=== PATIENT | female | born 1975 | race Caucasian/White ===

== ENCOUNTER 2019-07-20 19:06 | Inpatient (IN) | payer OTHER ==
[~2019-07-20] VITALS: Ht 149.9 cm; Wt 49.0 kg
[2019-07-20] MEDS ORDERED: GABA-531 PO (19:30)
[2019-07-20] MEDS ORDERED: RISP1 PO (19:30)
[2019-07-20] MEDS ORDERED: DOCU-275 PO (19:31)
[2019-07-20] MEDS ORDERED: BENZ1TAB10 PO (19:32)
[2019-07-20] MEDS ORDERED: ZOLPIDEM TARTRATE 10 MG TABLET PO PRN (19:45)
[2019-07-20] MEDS ORDERED: LORazepam 2 MG TABLET PO PRN (19:45)
[2019-07-20] MEDS ORDERED: NICOTINE POLACRILEX 2 MG LOZENGE PO PRN (20:45)
[2019-07-20] MEDS ORDERED: INFLUENZA VIRUS VACCINE QVS 2019-20 (3YR+)/PF 60 MCG/0.5 ML SYRINGE IM ONE (20:45)
[2019-07-20 21:06] VITALS: BP 105/67
[2019-07-21 07:13] VITALS: BP 104/65
[2019-07-21] MEDS: HALOPERIDOL 5 MG TABLET PO PRN (08:05)
[2019-07-21 08:09] LABS: HEMOGLOBIN A1C 5.4 % (4.5-6.2)
[2019-07-21 08:29] LABS: ALANINE AMINOTRANSFERASE 18 U/L (12-78); ALBUMIN 3.5 g/dL (3.4-5.0); ALKALINE PHOSPHATASE 33 U/L (46-116); ANION GAP 6 mmol/L (8-16); ASPARTATE AMINOTRANSFERASE 12 U/L (15-37); BILIRUBIN,TOTAL 0.2 mg/dL (0.1-1.0); CALCIUM, TOTAL 8.1 mg/dL (8.8-10.5); CARBON DIOXIDE 29 mmol/L (22-29); CHLORIDE 105 mmol/L (98-107); CHOLESTEROL 176 mg/dL (131-200); CREATININE 0.69 mg/dL (0.60-1.30); GLOMERULAR FILTR. RATE CALC > 60 mL/min (>60); GLUCOSE,RANDOM 88 mg/dL (70-110); HCG,QUANTITATIVE < 1 mIU/mL (0-6); HDL CHOLESTEROL 44 mg/dL (40-60); LDL CHOL (CALC.) 115 mg/dL (0-130); POTASSIUM 3.8 mmol/L (3.5-5.1); SODIUM SERUM 140 mmol/L (136-145); THYROID STIMULATING HORMONE 2.06 uIU/mL (0.36-3.74); TOTAL PROTEIN, SERUM 6.5 g/dL (6.4-8.2); TRIGLYCERIDES 83 mg/dL (15-150); UREA NITROGEN, BLOOD 9 mg/dL (7-18)
[2019-07-21 08:30] LABS: EOSINOPHILS % (AUTO) 5.2 % (1.0-6.0); HEMATOCRIT 31.6 % (36-46); HEMOGLOBIN 11.1 g/dL (12.0-16.0); LYMPHOCYTES # (AUTO) 1.2 K/uL (1.0-4.8); LYMPHOCYTES % (AUTO) 23.4 % (22.0-44.0); MEAN CORPUSCULAR HEMOGLOBIN 36.7 pg (26.0-34.0); MEAN CORPUSCULAR HGB CONC 35.1 G/dL (31.0-37.0); MEAN CORPUSCULAR VOLUME 105 fL (80-100); MONOCYTES # (AUTO) 0.4 K/uL (0.1-1.0); MONOCYTES % (AUTO) 8.2 % (2.0-9.0); NEUTROPHILS # (AUTO) 3.1 K/uL (1.8-7.7); NEUTROPHILS % (AUTO) 61.2 % (40.0-70.0); PLATELET COUNT (AUTO) 250 K/uL (150-450); RED BLOOD CELL COUNT(AUTO) 3.02 MIL/uL (4.00-5.20); RED CELL DISTRIBUTION WIDTH 12.8 % (11.5-14.5)
[2019-07-21 08:36] VITALS: BP 100/63
[2019-07-21] MEDS: NICOTINE 21 MG/24 HOUR PATCH TD SCH (09:29)
[2019-07-21] MEDS ORDERED: MAG HYDROX/AL HYDROX/SIMETH ES 30 ML SUSPENSION UDCUP PO PRN (09:30)
[2019-07-21] MEDS ORDERED: PETROLATUM,WHITE 28 GM JELLY TP PRN (09:30)
[2019-07-21] MEDS ORDERED: MAGNESIUM HYDROXIDE SUSPENSION 30 ML UDCUP PO PRN (09:30)
[2019-07-21] MEDS ORDERED: GuaiFENesin/D-METHORPHAN [SUGAR-FREE] 200-20MG/10 ML SYRUP UDCUP PO PRN (09:30)
[2019-07-21] MEDS ORDERED: NICOTINE 14 MG/24 HOUR PATCH TD PRN (09:30)
[2019-07-21] MEDS ORDERED: LOPERAMIDE HCL 2 MG CAPSULE PO PRN (09:30)
[2019-07-21] MEDS ORDERED: ONDANSETRON HCL 4 MG TABLET PO PRN (09:30)
[2019-07-21] MEDS ORDERED: CloNIDine HCL 0.1 MG TABLET PO PRN ×2 (09:30→15:30)
[2019-07-21] MEDS ORDERED: ALBUTEROL SULFATE HFA 90 MCG/PUFF 8 GM INHALER IH PRN (09:30)
[2019-07-21] MEDS ORDERED: DOCUSATE SODIUM 100 MG CAPSULE PO PRN (09:30)
[2019-07-21] MEDS ORDERED: IBUPROFEN 400 MG TABLET PO PRN (09:30)
[2019-07-21] MEDS ORDERED: ACETAMINOPHEN 325 MG TABLET PO PRN (09:30)
[2019-07-21 14:54] VITALS: BP 102/62
[2019-07-21] MEDS ORDERED: GABAPENTIN 300 MG CAPSULE PO PRN (15:30)
[2019-07-21] MEDS ORDERED: HydrOXYzine PAMOATE 25 MG CAPSULE PO PRN (15:30)
[2019-07-21] MEDS: BENZTROPINE MESYLATE 1 MG TABLET PO SCH (16:56)
[2019-07-21 17:00] VITALS: BP 101/57
[2019-07-22 06:36] VITALS: BP 106/67
[2019-07-22] MEDS: BENZTROPINE MESYLATE 1 MG TABLET PO SCH (08:22)
[2019-07-22] MEDS: NICOTINE 21 MG/24 HOUR PATCH TD SCH (08:22)
[2019-07-22 08:37] VITALS: BP_SYST 105; BP_SYST 117; BP_DIAS 61
[2019-07-22] MEDS: HALOPERIDOL 5 MG TABLET PO PRN (09:16)
[2019-07-22] MEDS ORDERED: BENZ1TAB10 PO (10:28)
[2019-07-23 08:15] LABS: AMPHET/METH SCREEN,URINE NEGATIVE (NEGATIVE); APPEARANCE,URINE CLEAR (CLEAR); BARBITURATE SCREEN, URINE NEGATIVE (NEGATIVE); BENZODIAZEPINES SCREEN,URINE NEGATIVE (NEGATIVE); BILIRUBIN,URINE NEGATIVE (NEGATIVE); CANNABINOID SCREEN,URINE NEGATIVE (NEGATIVE); COCAINE SCREEN,URINE NEGATIVE (NEGATIVE); GLUCOSE, URINE (UA) NEGATIVE (NEGATIVE); KETONES,URINE NEGATIVE (NEGATIVE); LEUKOCYTE ESTERASE ,URINE NEGATIVE (NEGATIVE); METHADONE SCREEN, URINE NEGATIVE (NEGATIVE); NITRATE,URINE NEGATIVE (NEGATIVE); OCCULT BLOOD,URINE NEGATIVE (NEGATIVE); OPIATE SCREEN,URINE NEGATIVE (NEGATIVE); PROTEIN,URINE NEGATIVE (NEGATIVE); UROBILINOGEN,URINE 0.2 mg/dL (<=1.0)
[2019-07-23 08:17] LABS: PHENCYCLIDINE SCREEN,URINE NEGATIVE (NEGATIVE)
== END 2019-07-22 12:45 | disposition home or self-care (01) | DRG 885 ==
LOC: B2S 19:39
DX: F25.1 Schizoaffective disorder, depressive type (principal); R45.851 Suicidal ideations; F15.20 Other stimulant dependence, uncomplicated; F14.20 Cocaine dependence, uncomplicated; D64.9 Anemia, unspecified; E83.51 Hypocalcemia; F10.10 Alcohol abuse, uncomplicated; K59.00 Constipation, unspecified
CPT/HCPCS: 80307; 83036; 84439; 84443; 87081